=== PATIENT | male | born 1950 | race Caucasian/White ===

== ENCOUNTER → 2017-08-13 07:55 | Outpatient (CLI) | payer MEDICARE, OTHER, SELFPAY ==
--- NOTE | 2017-08-13 | DI.CT.S_ITS ---
PROCEDURE: CT CHEST ABD PEL W CON INDICATIONS: NON SMALL CELL LUNG CANCER TECHNIQUE: After the administration of oral and intravenous contrast, 5 mm thick sections acquired from the lung apices to the symphysis. 5 mm coronal and sagittal reformats were performed, with additional 7 mm coronal MIP reformats through the lungs. For radiation dose reduction, the following was used: automated exposure control, adjustment of mA and/or kV according to patient size. COMPARISON: [facility], CT, CHEST/ABD/PEL WITH CONTRAST, 03/12/2017, 10:41. [facility], CT, CHEST/ABD/PEL WITH CONTRAST, 12/26/2016, 8:18. [facility], CT, CHEST/ABD/PEL WITH CONTRAST, 09/25/2016, 8:32. [facility], CT, CHEST/ABD/PEL WITH CONTRAST, 06/27/2016, 10:03. [facility], CT, CHEST/ABD/PEL WITH CONTRAST, 03/18/2016, 11:06. [facility], CT, CHEST/ABD/PEL WITH CONTRAST, 05/20/2017, 11:35. FINDINGS: Image quality: Excellent. CHEST: Lungs and pleura: There is grossly unchanged right basilar scarring or atelectasis. No acute consolidation, pleural effusion or pneumothorax. The airways appear grossly patent. 2 mm nodule seen on image 44 series 3 is unchanged since 12/26/16. Mediastinum: Heart size is normal. Trace pericardial fluid is present. Coronary artery calcifications are present. No pericardial effusion. No mediastinal or hilar adenopathy by size criteria. Thoracic aorta and central pulmonary arteries are normal in size. Esophagus is normal in caliber. No hiatal hernia. Chest wall: No axillary or supraclavicular adenopathy by size criteria. Thyroid gland negative. ABDOMEN: Solid organs: Liver is normal in size and enhancement. Gallbladder negative. Biliary system is non dilated. Pancreas enhances normally. Spleen is normal in size and enhancement. No adrenal nodules. Kidneys demonstrate normal size and enhancement, without hydronephrosis. There are bilateral renal cysts as before with unchanged appearance, the largest measuring 7.8 x 5.6 cm involving the left kidney. Peritoneum and bowel: Bowel loops demonstrate normal wall thickness and caliber. No free fluid or air. Scattered incidental colonic diverticula are present. The rectum is grossly unremarkable. Appendix appears normal. Nodes and vessels: There is redemonstration of retroperitoneal, left periaortic lymphadenopathy which is grossly unchanged since 05/20/17. Confluent lymph nodes image 78 series 2 along the left perinephric region measures 3.7 x 5.3 cm. Aorta and inferior vena cava are normal in size. Miscellaneous: Midline 2 cm fat containing ventral hernia PELVIS: Genitourinary: The bladder is decompressed otherwise unremarkable Miscellaneous: No inguinal hernias or adenopathy. There is also enlarged bilateral external iliac lymphadenopathy which is grossly unchanged since the prior study. Left common iliac enlarged lymph nodes are grossly unchanged. Bones: No suspicious bony lesions. No vertebral body compression fractures. IMPRESSION: Overall, stable examination since 05/20/17. Redemonstration of several enlarged retroperitoneal, left paraaortic, left common iliac, bilateral external iliac lymph nodes however no interval change since the prior study. Dictated by: Iván Beltrán M.D. on 08/13/2017 at 9:45 Approved by: Iván Beltrán M.D. on 08/13/2017 at 10:25
== END ==
PROVIDERS: Visit Provider Specialist
DX: C34.90 Malignant neoplasm of unspecified part of unspecified bronchus or lung (principal)
CPT/HCPCS: 71260; 74177; Q9967

== ENCOUNTER → 2018-02-17 08:06 | Outpatient (CLI) | payer MEDICARE, OTHER, SELFPAY ==
[2018-02-17 08:56] LABS: Hemoglobin 12.3 g/dL (13.5-17.5); Mean Corpuscular HGB Conc 33.2 % (30-36); Mean Corpuscular Hemoglobin 29.9 PG (26-34); Mean Corpuscular Volume 89.9 fL (80-100); Platelet Count 178 X10^3/uL (150-400); Red Blood Cell Count 4.11 X10^6/uL (4.5-5.9); Red Cell Distribution Width 13.7 % (11.6-14.8); White Blood Cell Count 6.1 X10^3/uL (4.5-11.0)
[2018-02-17 09:08] LABS: Alanine Aminotransferase 35 IU/L (21-72); Albumin 3.6 g/dL (3.5-5.0); Albumin Globulin Ratio 1.4 (1.0-2.8); Alkaline Phosphatase 101 U/L (38-126); Aspartate Aminotransferase 21 IU/L (17-59); BUN Creatinine Ratio 12.5 (6-22); Bilirubin Total 0.4 mg/dL (0.2-1.3); Blood Urea Nitrogen 15 mg/dL (9-20); Calcium 8.3 mg/dL (8.4-10.2); Carbon Dioxide 26 mmol/L (22-32); Chloride 107 mmol/L (98-107); Estimated Glomerular Filt Rate > 60.0 mL/min (>60); Globulin 2.6 g/dL (1.7-4.1); Glucose 91 mg/dL (80-110); HEMOLYSIS < 15 (0-50); Potassium 4.2 mmol/L (3.4-5.1); Sodium 145 mmol/L (137-145); Total Protein 6.2 g/dL (6.3-8.2)
--- NOTE | 2018-02-17 09:08 | DI.CT.S_ITS ---
PROCEDURE: CT CHEST ABD PEL W CON INDICATIONS: surveillance Small cell lung cancer TECHNIQUE: After the administration of oral and intravenous contrast, 5 mm thick sections acquired from the lung apices to the symphysis. 5 mm coronal and sagittal reformats were performed, with additional 7 mm coronal MIP reformats through the lungs. For radiation dose reduction, the following was used: automated exposure control, adjustment of mA and/or kV according to patient size. COMPARISON: [facility], CT, CT CHEST ABD PEL W CON, 08/13/2017, 9:09. [facility], CT, CHEST/ABD/PEL WITH CONTRAST, 05/20/2017, 11:35. FINDINGS: Image quality: Excellent. CHEST: Lungs and pleura: No acute airspace opacities. There is mild linear lung scarring along the lateral inferior right lower lobe but no lung mass No pleural effusions or pneumothorax. Central and peripheral airways appear patent and normal in caliber. Mediastinum: Heart size is normal. No pericardial effusion. No mediastinal or hilar adenopathy by size criteria. Thoracic aorta and central pulmonary arteries are normal in size. Esophagus is normal in caliber. No hiatal hernia. Chest wall: No axillary or supraclavicular adenopathy by size criteria. Thyroid gland appears normal. Port-A-Cath extends in normal position to the midline within the left brachiocephalic vein but does not cross the midline and unite with the right brachiocephalic vein to enter the superior vena cava. There has been definite interval worsening of an osteo- sclerotic lesion involving a left posterior mid chest rib (current study series 2 image 30). This shows increased extension of osteoblastic change into the adjacent soft tissues. ABDOMEN: Solid organs: Liver is normal in size and enhancement. Gallbladder is partially contracted. Biliary system is non dilated at the wanda hepatis, and is only slightly prominent at the right and left hepatic lobes as was previously the case.. Pancreas enhances normally. Spleen is normal in size and enhancement. No adrenal nodules. Kidneys demonstrate normal size and enhancement, without hydronephrosis. Exophytic renal cortical cysts are again seen. Malignant left periaortic adenopathy is again seen, measuring up to 5.9 cm oblique AP and 4.0 cm transverse, versus 5.5 x 3.5 cm in August of this year. This represents the upper margin of left periaortic adenopathy extends to the aortic bifurcation. The adenopathy has increased also along its more inferior course, with a maximal AP dimension at the aortic bifurcation on the left measuring 1.7 cm versus 2.4 cm currently. Peritoneum and bowel: Bowel loops demonstrate normal wall thickness and caliber. No free fluid or air. Nodes and vessels: No retroperitoneal or mesenteric adenopathy by size criteria. Aorta and inferior vena cava are normal in size. Miscellaneous: No ventral hernias. At the lumbar spine on the left at an axial level that correlates with the lower margin of the left kidney there is a infiltrative osteoblastic change anterolaterally, best seen on current series 2 image 85. Early osseous metastatic disease is the presumed cause given the absence of a similar abnormality in August. PELVIS: Genitourinary: Bladder wall thickness is normal. Miscellaneous: No inguinal hernias or adenopathy. Adenopathy along the external iliac node chain on the left has not significantly further enlarged when compared to the August 2017 study, but has not improved. The maximal transverse dimension of a largest lymph node in that area is 2.5 cm previously and currently. No definite enlargement also in an area of right proximal inguinal canal adenopathy where a previously enlarged node measures up to 2.6 cm. Bones: There is a osteoblastic metastatic bony lesion involving the medial border of the acetabular roof on the right, curvilinear and over approximately 2.5 cm in dimension not previously present. The. No vertebral body compression fractures. IMPRESSION: 1. There are definite new and enlarging previously present osteoblastic metastatic bone lesions. No impending pathologic fracture is found. Left rib, spine, and pelvis involvement are noted, detailed above. 2. Previously present left periaortic adenopathy is again seen and has mildly enlarged extending to the aortic bifurcation. 3. There is no lung mass identified. Pelvic adenopathy along the external iliac node chains bilaterally has not definitely worsened over time. Dictated by: Master Escobar M.D. on 02/17/2018 at 15:36 Approved by: Master Escobar M.D. on 02/17/2018 at 15:58
[2018-02-17 09:27] LABS: Neutrophils Absolute Manual 4636 /uL (3000-5900); RBC Morphology Normal Morphology; Total Cells Counted 100
[2018-02-17 10:41] LABS: Thyroid Stimulating Hormone 6.76 uIU/mL (0.47-4.68)
== END ==
PROVIDERS: PCP Family Medicine; Visit Provider Internal Medicine Hematology & Oncology
DX: C34.90 Malignant neoplasm of unspecified part of unspecified bronchus or lung (principal); C79.51 Secondary malignant neoplasm of bone
CPT/HCPCS: 36592; 71260; 74177; 80053; 84443; 85025; Q9967

== ENCOUNTER → 2018-02-24 10:05 | Outpatient (CLI) | payer MEDICARE, OTHER, SELFPAY ==
--- NOTE | 2018-02-24 10:07 | DI.NM.S_ITS ---
PROCEDURE: ME BONE SCAN WHOLE BODY RADIOPHARMACEUTICAL: 18.6 mCi Tc-99m MDP IV. INDICATIONS: Malignant neoplasm of unspecified part of unspecif TECHNIQUE: Delayed whole-body scintigrams were obtained approximately 3-4 hours after intravenous injection of radiotracer. Anterior and posterior views were acquired from vertex to feet. COMPARISON: [facility], CT, CHEST/ABD/PEL WITH CONTRAST, 12/26/2016, 8:18. [facility], CT, CHEST/ABD/PEL WITH CONTRAST, 03/12/2017, 10:41. [facility], CT, CHEST/ABD/PEL WITH CONTRAST, 05/20/2017, 11:35. [facility], CT, CT CHEST ABD PEL W CON, 08/13/2017, 9:09. [place], [place], PET/CT SKULL BASE TO MID THIGH, 08/17/2015, 9:30. [facility], CT, CT CHEST ABD PEL W CON, 02/17/2018, 9:41. FINDINGS: There is intense uptake in the right posterior seventh rib, correlating with sclerotic bone lesion on CT consistent with metastasis. Small foci of increased activity are seen in the anterior aspect of fifth, sixth, and seventh ribs, which may be secondary to old rib fractures. Increased uptake in the first costosternal junctions bilaterally is noted, likely degenerative in nature. Focal uptake in the L4-L5 area is noted. On bone window CT, there is a large osteophyte. Small sclerotic lesions in L2 vertebral body demonstrate no definitive bone scan finding. There is abnormal uptake in the right ischium (superior acetabulum), correlating with a sclerotic bone lesion. There are foci of increased periarticular activity involving shoulders bilaterally, sternoclavicular joints bilaterally, and right foot, compatible with degenerative/arthritic changes. There is normal soft tissue uptake. IMPRESSION: 1. There are foci of osseous metastasis involving the right posterior seventh rib and the right ischium consistent with osseous metastatic disease. 2. Small foci of sclerotic lesions in L2 vertebral body are not visible on bone scan, probably below the resolution of this exam. 3. The right anterior rib lesions could be due to old trauma. 4. Focal uptake in the left side of the lower lumbar spine is mostly degenerative in nature. Dictated by: Lydia Loco M.D. on 02/24/2018 at 17:48 Approved by: Master Escobar M.D. on 02/25/2018 at 14:54
== END ==
PROVIDERS: PCP Family Medicine; Visit Provider Internal Medicine Hematology & Oncology
DX: C34.90 Malignant neoplasm of unspecified part of unspecified bronchus or lung (principal); M89.9 Disorder of bone, unspecified; M51.36 Other intervertebral disc degeneration, lumbar region
CPT/HCPCS: 78306; A9503

== ENCOUNTER → 2018-03-05 14:46 | Outpatient (CLI) | payer MEDICARE, OTHER, SELFPAY ==
--- NOTE | 2018-03-05 14:48 | DI.MRI.S_ITS ---
PROCEDURE: MR ABDOME PELVIS WWO CON INDICATIONS: ELEVATED PSA TECHNIQUE: Coronal HASTE, axial T1 FSE with fat saturation, 3-plane nonbreath-hold T2 FSE. After the administration of contrast, dynamic axial, delayed axial and coronal VIBE or 2-D FLASH with fat saturation through the pelvis. Diffusion weighted imaging and ADC also performed. Axial and coronal haste, axial T1 in and out of phase also performed through the abdomen as well as postcontrast axial and coronal T1 vibe with fat saturation. COMPARISON: [facility], CT, CT CHEST ABD PEL W CON, 02/17/2018, 9:41. FINDINGS: Image quality: Diffusion sequences limited by large [id number]. Prostate: Gland size is 3.9 x 3.1 x 4.2 cm; ellipsoid gland volume is 26.4 mL. There is heterogeneity and enlargement of the transition zone compatible with BPH. Lesion size: Lesion 1: 0.6 x 0.5 in axial plane. Lesion location(s) (sector): Lesion 1: Right paracentral region of the peripheral zone in the mid gland. Lesion description: Lesion 1: Small round T1 and T2 indistinct lesion with slight T2 hyperintensity and isointense T1 signal. T2 weighted imaging (T2WI) morphology score: Lesion 1: 3 Diffusion weighted imaging (DWI) morphology score: Lesion 1: 3 Dynamic contrast enhancement (DCE): Lesion 1: Present Lesion PI-RADS score: Lesion 1: PI-RADS 4 Lung bases: There is linear atelectasis in the lung bases. Heart is normal in size. Solid organs: No suspicious hepatic lesions identified. There is a small cyst in the left hepatic lobe. Gallbladder appears within normal limits without gallstones. There is mild biliary ductal dilatation, with the common bile duct measuring up to 9 mm. There is suggestion of a small filling defect in the distal common bile duct measuring approximately 0.4 cm which may represent a common duct stone. Spleen is normal in size. No focal pancreatic lesion identified. Pancreatic duct is normal in caliber. No peripancreatic edema or fluid collections. No adrenal nodules. The kidneys demonstrate multiple bilateral renal cysts including a large exophytic cyst extending posteriorly from the left kidney measuring up to 8.4 cm. No hydronephrosis. There is nonspecific perinephric stranding bilaterally. Nodes and vessels: There is a confluent lobulated left periaortic kristie mass measuring approximately 6.0 x 5.9 cm in transverse dimension by 7.4 cm in craniocaudal dimension. This demonstrates heterogeneous internal enhancement following contrast administration. There is partial encasement of the aorta. The mass demonstrates mass effect on the left renal artery and left renal vein superiorly. In addition, there are multiple enlarged confluent left iliac lymph nodes along the common and external iliac arteries. A lobulated kristie mass adjacent to the left external iliac artery measures up to approximately 4.6 x 2.2 cm in axial dimension. There is no encasement of the common iliac artery which appears narrowed. The aorta appears normal in caliber. Bowel and peritoneum: Visualized bowel loops appear normal in caliber. No intraperitoneal free fluid. Pelvis: As noted above, there is a right paracentral lesion in the peripheral zone of the prostate suspicious for a PI-RADS 4 lesion. There is mild enhancement in the right seminal vesicles without a discrete mass identified. Otherwise, no definite extraprostatic local invasion. There is mild spiculation of the bladder wall related to sequelae of chronic bladder outlet obstruction. The Bones and soft tissues: There is bony lesion of the left aspect of the L4 vertebral body by the para-aortic kristie mass. There is also a mass in the medial right acetabulum measuring approximately 3.3 x 1.9 cm with cortical destruction medially. Mild enhancement demonstrated at the ischial tuberosities bilaterally. IMPRESSION: 1. Right paracentral region in the peripheral zone of the prostate demonstrates findings compatible with a PI-RADS 4 lesion. Findings are consistent with a high likelihood of clinically significant cancer. 2. Left para-aortic and left iliac lymphadenopathy consistent with metastatic disease. 3. Bony invasion of the L4 vertebral body by the para-aortic kristie mass. A right acetabular mass is also demonstrated consistent with bony metastatic disease. 4. Mild biliary ductal dilatation with suggestion of choledocholithiasis. Recommend correlation with laboratory values. Dictated by: Hemant Kimble M.D. on 03/08/2018 at 11:03 Approved by: Hemant Kimble M.D. on 03/08/2018 at 11:47
== END ==
PROVIDERS: PCP Family Medicine; Visit Provider Nurse Practitioner Gerontology
DX: N42.9 Disorder of prostate, unspecified (principal); R91.8 Other nonspecific abnormal finding of lung field; R97.20 Elevated prostate specific antigen [PSA]; R59.0 Localized enlarged lymph nodes; M89.9 Disorder of bone, unspecified
CPT/HCPCS: 72197; A9579

== ENCOUNTER 2018-08-03 00:28 | Emergency (ER) | payer MEDICARE, OTHER, SELFPAY ==
[2018-08-03 00:36] VITALS: TEMP 36.3
--- NOTE | 2018-08-03 00:43 | DI.CT.S_ITS ---
PROCEDURE: CT HEAD/BRAIN WO CON INDICATIONS: Acute mental status change, history of prostate and lung cancer TECHNIQUE: Noncontrast 4.5 mm thick angled axial sections acquired from the foramen magnum to the vertex, with coronal and sagittal reformats. For radiation dose reduction, the following was used: automated exposure control, adjustment of mA and/or kV according to patient size. COMPARISON: [facility], MR, BRAIN W&WO CONTRAST, 01/16/2017, 8:40. FINDINGS: Image quality: Limited by patient motion. CSF spaces: Basal cisterns are patent. No extra-axial fluid collections. The ventricles are symmetric in size and shape. Brain: No intracranial bleeds or masses. There is cerebral volume loss for age, with resultant ventricular and sulcal prominence. There are periventricular and deep white matter chronic small vessel ischemic changes. There is intracranial internal carotid artery and vertebral artery atherosclerosis. Skull and face: Calvarium and visualized facial bones appear intact, without suspicious lesions. Sinuses: Visualized sinuses and mastoids are clear. IMPRESSION: No acute intracranial disease process within limitations related to motion. Dictated by: Rylie Valencia MD, PhD on 08/03/2018 at 8:53 Approved by: Rylie Valencia MD, PhD on 08/03/2018 at 8:56
--- NOTE | 2018-08-03 00:44 | DI.RAD.S_ITS ---
PROCEDURE: XR ACUTE ABDOMEN SERIES INDICATIONS: Abdominal pain, decreased Bowel movement and urine TECHNIQUE: One view chest and two views of the abdomen were acquired. COMPARISON: [facility], CT, CT CHEST ABD PEL W CON, 02/17/2018, 9:41. FINDINGS: Surgical changes and devices: None. Chest: Lungs are clear. Heart size is moderately increased. There is widening of the mediastinal contour. No pleural effusions. No pneumoperitoneum. Abdomen: Bowel gas pattern is nonobstructive. There is colonic gas and paucity of small bowel gas. No suspicious calcifications. Visualized solid organ contours appear normal. Bones: No suspicious bony lesions. IMPRESSION: Nonspecific, nonobstructive bowel gas pattern. Dictated by: Lydia Loco M.D. on 08/03/2018 at 9:29 Approved by: Lydia Loco M.D. on 08/03/2018 at 9:31
--- NOTE | 2018-08-03 00:47 | ED_ITS ---
HPI - SOB/Dyspnea General Chief Complaint: Shortness of Breath/Dyspnea Stated Complaint: sob/confusion/no urine/chemo on 11 Time Seen by Provider: 08/03/18 00:29 Source: patient and family Mode of arrival: wheelchair Limitations: altered mental status History of Present Illness 68-year-old male former smoker with history of stage 4 lung and prostate cancer on chemotherapy (most recent infusion 07/22) presents with and the chief com plaint about a week worsening confusion, shortness of breath and feeling unwell. Patient and his were traveling on [place] [facility] and consulted their oncologist who recommended they return for evaluation. Patient's last brain imaging was quite sometime ago. He denies any recent injury. patient has taken his regular MS Contin as well as Zofran at home MD Complaint: shortness of breath and cough Onset (ago): day(s) Severity: moderate Consistency/Duration: constant Relieving factors: nothing Exacerbating factors: exertion and movement Treatment prior to arrival: none Related Data Home Medications Medication Instructions Recorded Confirmed amiodarone 100 mg PO QDAY #0 11/20/15 08/03/18 [DANDELION ROOT] QAM #0 01/31/16 [MILK THISTLE] Q DAY #0 10/24/16 megestrol 10 ml PO QDAY 08/13/17 Mushroom Memory QAM 10/15/17 Mushrrom Immune 10/15/17 [place] Mushroom QAM 10/15/17 ascorbic acid (vitamin C) [Vitamin 1,000 mg PO DAILY 10/15/17 06/24/18 C] aspirin 81 mg PO DAILY 10/15/17 06/24/18 metoprolol tartrate 100 mg PO BID 10/15/17 08/03/18 multivitamin 1 tab PO DAILY 10/15/17 06/24/18 polyethylene glycol 3350 [Miralax] 17 g PO DAILY PRN 10/15/17 06/24/18 saw palmetto 160 mg PO BID 10/15/17 06/24/18 Previous Rx's Medication Instructions Recorded sennosides [Senokot] 8.6 mg PO QDAY #10 tab 11/18/16 diltiazem HCl 120 mg PO QDAY #90 tab 06/16/17 diclofenac sodium [Voltaren] 1 will TOPICAL Q6HR PRN #100 gm 09/04/17 furosemide 20 mg PO DAILY PRN #60 ml 10/15/17 hydrocortisone 10 mg PO QDAY #30 tab 11/05/17 hydrocortisone See Rx Instructions .ROUTE 11/05/17 .COMPLEX #90 tab levofloxacin [Levaquin] 750 mg PO DAILY #10 tab 11/26/17 morphine [MS Contin] 30 mg PO Q12H #60 tab 12/17/17 ondansetron [Zofran ODT] 4 mg PO Q6H PRN #30 tab 12/17/17 pantoprazole 40 mg PO DAILY #90 tab 12/17/17 tamsulosin [Flomax] 0.4 mg PO QDAY #30 cap 02/09/18 levothyroxine 75 mcg PO DAILY #90 cap 05/13/18 ondansetron 8 mg PO BID-TID PRN #30 tab 05/29/18 ondansetron HCl 8 mg PO Q8H PRN #30 tab 06/15/18 lorazepam 1 mg PO BID-TID PRN #60 tab 07/22/18 morphine 5 mg PO Q4-6H PRN #120 ml 07/22/18 morphine [MS Contin] 30 mg PO Q12H #60 tab 07/22/18 Allergies Allergy/AdvReac Type Severity Reaction Status Date / Time No Known Drug Allergies Allergy Verified 08/06/17 14:06 Review of Systems Review of Systems The patient is awake the majority of review of systems comes through the Constitutional Reports chills, Denies fever(s), Denies lethargy and Reports weakness Eyes Denies change in vision, Denies eye discharge, Denies irritation and Denies loss of vision ENT Ears, Nose, Mouth, and Throat: Denies change in voice, Denies neck pain and Denies sore throat Cardiovascular Denies chest pain, Denies irregular heart rhythm, Denies lightheadedness, Denies palpitations, Reports dyspnea, Reports dyspnea on exertion and Denies orthopnea Respiratory Reports cough, Reports dyspnea, Reports dyspnea on exertion and Denies wheezing Gastrointestinal Gastrointestinal: Denies abdominal pain, Denies change in bowel habits, Denies diarrhea, Denies nausea and Denies vomiting Genitourinary Denies hematuria, Denies flank pain, Denies urinary incontinence and Denies urinary urgency Musculoskeletal Denies neck pain Integumentary/Breasts Denies pruritus, Denies erythema, Denies rash and Denies wounds Neurologic Reports confusion, Denies loss of vision and Reports weakness Psychiatric Denies anxiety, Reports confusion, Denies depression, Denies homicidal ideation and Denies suicidal ideation Endocrine Denies palpitations Hematologic/Lymphatic Denies easy bruising Allergic/Immunologic Denies wheezing Exam Narrative Exam Narrative: GENERAL: 68-year-old male appears obviously chronically ill, weak, pleasant, overweight HEAD: Atraumatic. Normocephalic. No temporal or scalp tenderness. thinning hair EYES: Pupils equal round and reactive. Extraocular motions intact. No scleral icterus. No injection or drainage. ENT: Nose without bleeding, purulent drainage or septal hematoma. Throat without erythema, tonsillar hypertrophy or exudate. Uvula midline. Airway patent. NECK: Trachea midline. No JVD or lymphadenopathy. Supple, nontender, no meningeal signs. CARDIOVASCULAR: Regular rate irregular rhythm without murmurs, gallops, or rubs. RESPIRATORY: Prolonged expiratory phase bilaterally, decreased breath sounds bilaterally GASTROINTESTINAL: Abdomen soft, non-tender, nondistended. No hepato- splenomegaly, or palpable masses. No guarding. EXTREMITIES: No clubbing, cyanosis, or edema. No joint tenderness, effusion, or edema noted. BACK: Nontender without deformity or crepitance. No flank tenderness. NEURO: Alert, but confused SKIN: No rash or erythema. Initial Vital Signs Initial Vital Signs: Vital Signs Temperature 97.4 F L 08/03/18 00:36 Course Orders Ordered: ED Orders 08/03/18 EKG-12 Lead Routine EKG-12 Lead Routine 08/03/18 00:40 Complete Blood Count AUTO DIFF Stat Comprehensive Metabolic Panel Stat Lactate (Lactic Acid) Stat Procalcitonin Stat Prostate Specific Antigen Stat 08/03/18 00:43 CT head/brain wo con Stat 08/03/18 00:44 XR acute abdomen series Stat 08/03/18 00:52 Influenza A and B by PCR Rapid Stat 08/03/18 01:27 US renal complete Stat 08/03/18 01:35 Blood Culture Stat 08/03/18 01:55 UA Complete [Urinalysis and Microscopic] Stat Lactated Ringer's (Lactated Ringers) 1,000 mls @ 1,000 mls/hr IV BOLUS PRN PRN Reason: Hypotension Last Admin: 08/03/18 03:51 Dose: 1,000 mls/hr Infusion: 08/03/18 03:51 Dose: 1,000 mls/hr Admin: 08/03/18 03:00 Dose: 1,000 mls/hr Infusion: 08/03/18 02:49 Dose: 0 mls/hr Admin: 08/03/18 01:40 Dose: 1,000 mls/hr Discontinued Medications Fentanyl (Sublimaze) 100 mcg IV NOW ONE Stop: 08/03/18 03:54 Last Admin: 08/03/18 03:55 Dose: 100 mcg Lorazepam (Ativan) 0.5 mg IV NOW ONE Stop: 08/03/18 02:38 Last Admin: 08/03/18 02:30 Dose: 0.5 mg Lorazepam (Ativan) 1.5 mg IV NOW ONE Stop: 08/03/18 03:00 Last Admin: 08/03/18 03:01 Dose: 1.5 mg Lorazepam (Ativan) 1 mg IV NOW ONE Stop: 08/03/18 04:21 Last Admin: 08/03/18 04:24 Dose: 1 mg Reevaluation(s) Reevaluation #1: bladder scan notes 609mL. Renal US is pending. Consultations Consultation #1: call to [facility]. No beds. Patient prefers [facility] if possible. Not [place]. call to Dr. Bo (Nephrology at [facility]) he agrees with plan and is happy to be involved in consult should hospitalist call for it call to Dr. Rodriguez (Hospitalist at [facility]) Time: 01:49 Vital Signs - 8 hr 08/03/18 00:36 08/03/18 01:36 08/03/18 02:03 Temperature 97.4 F L Pulse Rate 109 H 99 H Respiratory Rate 22 16 Blood Pressure [Left Arm] 82/66 L 101/53 L Pulse Oximetry 95 08/03/18 04:00 Temperature Pulse Rate 90 Respiratory Rate 15 Blood Pressure [Left Arm] 101/74 Pulse Oximetry 95 MDM - SOB/Dyspnea Lab Data Result diagrams: 08/03/18 00:40 08/03/18 00:40 Lab Results 08/03/18 08/03/18 08/03/18 Range/Units 00:40 00:40 00:40 WBC 7.1 (4.5-11.0) X10^3/uL RBC 3.05 L (4.5-5.9) X10^6/uL Hgb 9.2 L (13.5-17.5) g/dL Hct 27.9 L (41-53) % MCV 91.3 (80-100) fL MCH 30.2 (26-34) PG MCHC 33.0 (30-36) % RDW 15.4 H (11.6-14.8) % Plt Count 183 (150-400) X10^3/uL Neut % (Auto) Not Reportable Lymph % (Auto) Not Reportable Bryan % (Auto) Not Reportable Eos % (Auto) Not Reportable Baso % (Auto) Not Reportable Lymph # (Auto) Not Reportable Bryan # (Auto) Not Reportable Baso # (Auto) Not Reportable Total Counted 100 Seg Neutrophils % 77.0 H (38-70) % Band Neutrophils % 3.0 (3-7) % Lymphocytes % (Manual) 10.0 L (25-45) % Monocytes % (Manual) 8.0 (2-11) % Metamyelocytes % 2.0 H (-0) % Neutrophils # (Manual) 5680 (5075-7743) /uL RBC Morphology Normal morphology Sodium 135 L (137-145) mmol/L Potassium 4.5 (3.4-5.1) mmol/L Chloride 99 (98-107) mmol/L Carbon Dioxide 19 L (22-32) mmol/L BUN 86 H (9-20) mg/dL Creatinine 9.40 H* (0.66-1.25) mg/dL Estimated GFR 5.6 L (>60) mL/min BUN/Creatinine Ratio 9.1 (6-22) Glucose 94 (80-110) mg/dL Lactate (0.7-2.1) mmol/L Calcium 8.5 (8.4-10.2) mg/dL Total Bilirubin 0.4 (0.2-1.3) mg/dL AST 54 (17-59) IU/L ALT 48 (21-72) IU/L Alkaline Phosphatase 60 (38-126) U/L Total Protein 6.5 (6.3-8.2) g/dL Albumin 3.5 (3.5-5.0) g/dL Globulin 3.0 (1.7-4.1) g/dL Albumin/Globulin Ratio 1.2 (1.0-2.8) Prostate Specific Ag (0.10-4.00) ng/mL Procalcitonin 5.70 H (<0.5) ng/mL Urine Color Urine Appearance Urine pH (4.5-8.0) Ur Specific [place] (1.000-1.035) Urine Protein (Negative) Urine Glucose (UA) (Negative) g/dL Urine Ketones (NEGATIVE) Urine Occult Blood (Negative) Urine Nitrate (Negative) Urine Bilirubin (NEGATIVE) Urine Urobilinogen (0.2) E.U./dL Ur Leukocyte Esterase (NEGATIVE) Urine RBC (0-5/HPF) Urine WBC (0-5/HPF) Amorphous Sediment Urine Bacteria (None) Hyaline Casts (None) Ur Culture Indicated? Influenza A & B (PCR) (Negative) 08/03/18 08/03/18 08/03/18 Range/Units 00:40 00:40 00:52 WBC (4.5-11.0) X10^3/uL RBC (4.5-5.9) X10^6/uL Hgb (13.5-17.5) g/dL Hct (41-53) % MCV (80-100) fL MCH (26-34) PG MCHC (30-36) % RDW (11.6-14.8) % Plt Count (150-400) X10^3/uL Neut % (Auto) Lymph % (Auto) Bryan % (Auto) Eos % (Auto) Baso % (Auto) Lymph # (Auto) Bryan # (Auto) Baso # (Auto) Total Counted Seg Neutrophils % (38-70) % Band Neutrophils % (3-7) % Lymphocytes % (Manual) (25-45) % Monocytes % (Manual) (2-11) % Metamyelocytes % (-0) % Neutrophils # (Manual) (7717-3997) /uL RBC Morphology Sodium (137-145) mmol/L Potassium (3.4-5.1) mmol/L Chloride (98-107) mmol/L Carbon Dioxide (22-32) mmol/L BUN (9-20) mg/dL Creatinine (0.66-1.25) mg/dL Estimated GFR (>60) mL/min BUN/Creatinine Ratio (6-22) Glucose (80-110) mg/dL Lactate 1.3 (0.7-2.1) mmol/L Calcium (8.4-10.2) mg/dL Total Bilirubin (0.2-1.3) mg/dL AST (17-59) IU/L ALT (21-72) IU/L Alkaline Phosphatase (38-126) U/L Total Protein (6.3-8.2) g/dL Albumin (3.5-5.0) g/dL Globulin (1.7-4.1) g/dL Albumin/Globulin Ratio (1.0-2.8) Prostate Specific Ag 8.33 H (0.10-4.00) ng/mL Procalcitonin (<0.5) ng/mL Urine Color Urine Appearance Urine pH (4.5-8.0) Ur Specific [place] (1.000-1.035) Urine Protein (Negative) Urine Glucose (UA) (Negative) g/dL Urine Ketones (NEGATIVE) Urine Occult Blood (Negative) Urine Nitrate (Negative) Urine Bilirubin (NEGATIVE) Urine Urobilinogen (0.2) E.U./dL Ur Leukocyte Esterase (NEGATIVE) Urine RBC (0-5/HPF) Urine WBC (0-5/HPF) Amorphous Sediment Urine Bacteria (None) Hyaline Casts (None) Ur Culture Indicated? Influenza A & B (PCR) Negative (Negative) 08/03/18 Range/Units 01:55 WBC (4.5-11.0) X10^3/uL RBC (4.5-5.9) X10^6/uL Hgb (13.5-17.5) g/dL Hct (41-53) % MCV (80-100) fL MCH (26-34) PG MCHC (30-36) % RDW (11.6-14.8) % Plt Count (150-400) X10^3/uL Neut % (Auto) Lymph % (Auto) Bryan % (Auto) Eos % (Auto) Baso % (Auto) Lymph # (Auto) Bryan # (Auto) Baso # (Auto) Total Counted Seg Neutrophils % (38-70) % Band Neutrophils % (3-7) % Lymphocytes % (Manual) (25-45) % Monocytes % (Manual) (2-11) % Metamyelocytes % (-0) % Neutrophils # (Manual) (3691-4205) /uL RBC Morphology Sodium (137-145) mmol/L Potassium (3.4-5.1) mmol/L Chloride (98-107) mmol/L Carbon Dioxide (22-32) mmol/L BUN (9-20) mg/dL Creatinine (0.66-1.25) mg/dL Estimated GFR (>60) mL/min BUN/Creatinine Ratio (6-22) Glucose (80-110) mg/dL Lactate (0.7-2.1) mmol/L Calcium (8.4-10.2) mg/dL Total Bilirubin (0.2-1.3) mg/dL AST (17-59) IU/L ALT (21-72) IU/L Alkaline Phosphatase (38-126) U/L Total Protein (6.3-8.2) g/dL Albumin (3.5-5.0) g/dL Globulin (1.7-4.1) g/dL Albumin/Globulin Ratio (1.0-2.8) Prostate Specific Ag (0.10-4.00) ng/mL Procalcitonin (<0.5) ng/mL Urine Color Dark yellow Urine Appearance Clear Urine pH 5.0 (4.5-8.0) Ur Specific [place] >=1.030 H (1.000-1.035) Urine Protein Negative (Negative) Urine Glucose (UA) Negative (Negative) g/dL Urine Ketones Negative (NEGATIVE) Urine Occult Blood Negative (Negative) Urine Nitrate Negative (Negative) Urine Bilirubin Negative (NEGATIVE) Urine Urobilinogen 0.2 (0.2) E.U./dL Ur Leukocyte Esterase Negative (NEGATIVE) Urine RBC None seen (0-5/HPF) Urine WBC None seen (0-5/HPF) Amorphous Sediment 2+ Urine Bacteria None seen (None) Hyaline Casts 0-1/lpf (None) Ur Culture Indicated? Cult not indicated Influenza A & B (PCR) (Negative) MDM Narrative Medical decision making narrative: patient with mental status change, no urine, no BM. Bladder scan notes 600+ mL. Clinically dry, dry membranes. Creatinine bump to over 9 without signs that would suggest need for emergent dialysis. US shows no obvious obstructive uropathy. Most likely cause is urinary retention from prostate CA with dehydration (perhaps related to chemo). Will require hospitalization for ongoing treatment and diagnosis. Will require higher level of care due to our lack of Urology and Nephrology. Patient has had mental status change and agitation without injury. Head CT shows no mets. This is likely due to renal failure, pain meds, lack of sleep. Requires ALS transport due to cardiac monitoring POLST form filled out at bedside. Patient is DNR and comfort measures Critical Care Time Critical Care Time: Yes Total Critical Care Time: 45 Attestation: The high probability of a clinically significant, sudden or life threatening deterioration of the [renal] system(s) required my full and direct attention, intervention and personal management. The aggregate critical care time was [45] minutes. This time is in addition to time spent performing reported procedures but includes the following: [x] Data Review and interpretation [x] Patient assessment and monitoring of vital signs [x] Documentation [x] Medication orders and management Discharge Plan Departure Patient Disposition: [facility] Clinical Impression: Acute renal failure, Acute metabolic encephalopathy Prescriptions: No Action amiodarone 200 MG tablet 100 mg PO QDAY Qty: 0 RF: 0 [DANDELION ROOT] QAM Qty: 0 RF: 0 [MILK THISTLE] Q DAY Qty: 0 RF: 0 sennosides [Senokot] 8.6 MG tablet 8.6 mg PO QDAY Qty: 10 RF: 1 diltiazem HCl 120 MG capsule,extended release 24hr 120 mg PO QDAY Qty: 90 RF: 5 tamsulosin [Flomax] 0.4 mg capsule 0.4 mg PO QDAY Qty: 30 RF: 6 megestrol 400 mg/10 mL (40 mg/mL) Suspension 10 ml PO QDAY RF: 0 diclofenac sodium [Voltaren] 1 % gel 1 will Topical Q6HR PRN (Reason: Pain (Scale Score 4-6)) Qty: 100 RF: 3 furosemide 10 mg/mL Solution 20 mg PO DAILY PRN (Reason: edema, shortness of breath) Qty: 60 RF: 1 multivitamin Tablet 1 tab PO DAILY RF: 0 polyethylene glycol 3350 [Miralax] 17 gram Powder In Packet 17 g PO DAILY PRN (Reason: Constipation) RF: 0 metoprolol tartrate 100 mg Tablet 100 mg PO BID RF: 0 saw palmetto 160 mg Capsule 160 mg PO BID RF: 0 Mushroom Memory QAM RF: 0 Mushrrom Immune RF: 0 [place] Mushroom QAM RF: 0 ascorbic acid (vitamin C) [Vitamin C] 1,000 mg Tablet 1,000 mg PO DAILY RF: 0 aspirin 81 mg Tablet,Delayed Release (Dr/Ec) 81 mg PO DAILY RF: 0 hydrocortisone 10 MG tablet 10 mg PO QDAY Qty: 30 RF: 1 hydrocortisone 5 mg Tablet See Rx Instructions .ROUTE .COMPLEX Qty: 90 RF: 0 levofloxacin [Levaquin] 750 mg Tablet 750 mg PO DAILY Qty: 10 RF: 1 pantoprazole 40 mg Tablet,Delayed Release (Dr/Ec) 40 mg PO DAILY Qty: 90 RF: 2 ondansetron [Zofran ODT] 4 mg Tablet,Disintegrating 4 mg PO Q6H PRN (Reason: Nausea) Qty: 30 RF: 0 morphine [MS Contin] 30 mg Tablet Extended Release 30 mg PO Q12H Qty: 60 RF: 0 levothyroxine 75 mcg capsule 75 mcg PO DAILY Qty: 90 RF: 0 ondansetron 8 mg Tablet,Disintegrating 8 mg PO BID-TID PRN (Reason: Nausea) Qty: 30 RF: 0 ondansetron HCl 8 mg Tablet 8 mg PO Q8H PRN (Reason: Nausea) Qty: 30 RF: 2 morphine [MS Contin] 30 MG tablet extended release 30 mg PO Q12H Qty: 60 RF: 0 morphine 10 mg/5 mL Solution 5 mg PO Q4-6H PRN (Reason: lung cancer, prostate cancer) Qty: 120 RF: 0 lorazepam 1 mg Tablet 1 mg PO BID-TID PRN (Reason: nausea, SCLC, prostate cancer) Qty: 60 RF: 0 Referrals: Donte Vasquez MD [Primary Care Provider] -
[2018-08-03 01:08] LABS: Add Manual Diff / Slide Review YES; Hematocrit 27.9 % (41-53); Hemoglobin 9.2 g/dL (13.5-17.5); Mean Corpuscular Hemoglobin 30.2 PG (26-34); Mean Corpuscular Volume 91.3 fL (80-100); Platelet Count 183 X10^3/uL (150-400); Red Blood Cell Count 3.05 X10^6/uL (4.5-5.9); Red Cell Distribution Width 15.4 % (11.6-14.8); White Blood Cell Count 7.1 X10^3/uL (4.5-11.0)
[2018-08-03 01:10] LABS: Alanine Aminotransferase 48 IU/L (21-72); Albumin 3.5 g/dL (3.5-5.0); Albumin Globulin Ratio 1.2 (1.0-2.8); Alkaline Phosphatase 60 U/L (38-126); Aspartate Aminotransferase 54 IU/L (17-59); Bilirubin Total 0.4 mg/dL (0.2-1.3); Calcium 8.5 mg/dL (8.4-10.2); Carbon Dioxide 19 mmol/L (22-32); Chloride 99 mmol/L (98-107); Glucose 94 mg/dL (80-110); HEMOLYSIS < 15 (0-50); Lactate (Lactic Acid) 1.3 mmol/L (0.7-2.1); Potassium 4.5 mmol/L (3.4-5.1); Sodium 135 mmol/L (137-145); Total Protein 6.5 g/dL (6.3-8.2)
[2018-08-03 01:21] LABS: Influenza A and B by PCR Rapid Negative (Negative)
[2018-08-03 01:22] LABS: BUN Creatinine Ratio 9.1 (6-22); Blood Urea Nitrogen 86 mg/dL (9-20); Estimated Glomerular Filt Rate 5.6 mL/min (>60)
--- NOTE | 2018-08-03 01:27 | DI.US.S_ITS ---
PROCEDURE: US RENAL COMPLETE INDICATIONS: SEVERE RENAL FAILURE TECHNIQUE: Real-time scanning was performed of the kidneys and bladder, with image documentation. COMPARISON: None. FINDINGS: Kidneys: Kidneys are normal in size. Right kidney measures 11.8 cm long; left kidney measures 12.5 cm long. Right renal cortical thickness is 1.6 cm; left renal cortical thickness is 2.7 cm. Renal cortical echotexture is normal. No hydronephrosis or nephrolithiasis. No suspicious solid mass lesions. 1.5 cm in diameter cyst is noted in the inferior pole of the right kidney. 2.1 x 1.7 x 1.9 cm cyst noted in the inferior pole of the left kidney. 8.1 x 7.5 x 6.1 cm exophytic cyst noted in the lateral left kidney. Bladder: Bladder is decompressed by [place] catheter. Miscellaneous: No free pelvic fluid. IMPRESSION: 1. No hydronephrosis. 2. Bilateral renal cysts. Dictated by: Rylie Valencia MD, PhD on 08/03/2018 at 8:56 Approved by: Rylie Valencia MD, PhD on 08/03/2018 at 8:58
[2018-08-03 01:32] LABS: Neutrophils Absolute Manual 5680 /uL (3000-5900); Total Cells Counted 100
[2018-08-03 01:33] LABS: RBC Morphology Normal Morphology
[2018-08-03 01:36] VITALS: BP 82/66; PULSE 109; RESP 22; O2SAT 95
--- NOTE | 2018-08-03 01:37 | PC.NURSE ---
port accessed per protocol
[2018-08-03] MEDS: LACTATED RINGERS 1,000 ML 1000 ML IV ×3 (01:40→03:51)
--- NOTE | 2018-08-03 01:44 | PC.NURSE ---
drawn by lab
--- NOTE | 2018-08-03 02:02 | PC.NURSE ---
16fr coude placed, 800ml returned, secured to leg, 10ml balloon fill.
[2018-08-03 02:03] VITALS: BP 101/53; PULSE 99; RESP 16
[2018-08-03 02:21] LABS: Prostate Specific Antigen 8.33 ng/mL (0.10-4.00)
[2018-08-03] MEDS: LORazepam 2 MG/ML SYRINGE 0.5 MG IV (02:30)
--- NOTE | 2018-08-03 02:50 | PC.NURSE ---
pt hr increased to 130 and pt became agitated. Provider notified, ecg performed, ativan ordered. Pt developed a skin tear on right elbow from being agitated and flailing around in bed. Provider notified, dressing placed.
[2018-08-03] MEDS: LORazepam 2 MG/ML SYRINGE 1.5 MG IV (03:01)
--- NOTE | 2018-08-03 03:01 | PC.NURSE ---
Second liter of LR started, Pt continues to flail in bed, pulling at lines and wires, and attempting to get out of bed. Provider notified, verbal order for ativan received.
[2018-08-03 03:17] LABS: Appearance Urine UA CLEAR; Bacteria Urine None Seen; Glucose Urine UA NEGATIVE (Negative); Ketones Urine UA NEGATIVE (NEGATIVE); Leukocyte Esterase Urine UA NEGATIVE (NEGATIVE); Nitrite Urine UA NEGATIVE (Negative); Occult Blood Urine UA NEGATIVE (Negative); Protein Urine UA NEGATIVE (Negative); RBC Urine None Seen (0-5/HPF); Specific Gravity Urine UA >=1.030 (1.000-1.035); Urobilinogen Urine UA 0.2 E.U./dL (0.2); WBC Urine None Seen (0-5/HPF)
[2018-08-03 03:19] LABS: Color Urine UA Dark Yellow
[2018-08-03 03:20] LABS: Amorphous Sediment Urine 2+; Bilirubin Urine UA Negative (NEGATIVE); Culture Indicated Urine Cult Not Indicated; Hyaline Casts Urine 0-1/LPF
[2018-08-03] MEDS: fentaNYL 100 MCG/2 ML INJ IV (03:55)
[2018-08-03 04:00] VITALS: BP 101/74; PULSE 90; RESP 15; O2SAT 95
[2018-08-03] MEDS: LORazepam 2 MG/ML SYRINGE 1 MG IV (04:24)
[2018-08-03 05:06] VITALS: BP 110/84; PULSE 108; RESP 18; O2SAT 97
== END 2018-08-03 05:17 | disposition short-term general hospital (02) ==
PROVIDERS: Emergency Provider Emergency Medicine; Family Provider Family Medicine; PCP Family Medicine
DX: N17.9 Acute kidney failure, unspecified (principal); G93.41 Metabolic encephalopathy; R41.0 Disorientation, unspecified; R33.9 Retention of urine, unspecified; R06.02 Shortness of breath; C61 Malignant neoplasm of prostate; C34.90 Malignant neoplasm of unspecified part of unspecified bronchus or lung
CPT/HCPCS: 36415; 51798; 70450; 74022; 76770; 80053; 81001; 83605; 84145; 84153; 85025; 87040; 87400; 93005; 93010; 96374; 96375; 96376; 99285; J2060; J3010